=== PATIENT | male | born 1990 | race Caucasian/White ===

== ENCOUNTER 2016-09-19 21:09 | Emergency (ER) | payer MEDICAID ==
[2016-09-19 21:32] VITALS: BP 132/75
[2016-09-20] MEDS ORDERED: NORMAL SALINE 1000 ML 1,000 ML IV ONE (01:32)
[2016-09-20] MEDS ORDERED: ONDANSETRON HCL INJ/PF 4 MG/2 ML SDV IV ONE (01:33)
[2016-09-20] MEDS ORDERED: ONDANSETRON ODT 4 MG TAB (6 TAB/DSPK) PO PRN (02:24)
--- NOTE | 2016-09-20 02:26 | ER Document Report ---
ED General - General Chief Complaint: Vomiting Stated Complaint: VOMITING,SICKNESS, STOMACH PAIN Time Seen by Provider: 09/20/16 01:32 Notes: Patient is a 25-year-old male without past medical history, no prior abdominal surgeries who presents with 16 hours of nausea, vomiting and diarrhea. States that the symptoms started approximately several hours after he ate chicken wings. Notes that he has had difficulty tolerating food intake since the onset of his vomiting but has been able to keep fluids down. He denies any focal abdominal pain. States that his symptoms have now spontaneously resolved at the time of my assessment. Nothing was noted to improve or worsen his symptoms. He denies any history of similar symptoms in the past. He did not see his primary care doctor regarding today's concerns. Denies any associated fever, chest pain, cough or dysuria TRAVEL OUTSIDE OF THE [place] IN LAST 30 DAYS: No - Related Data Allergies/Adverse Reactions: No Known Allergies Allergy (Unverified 09/19/16 21:29) Past Medical History - General Information source: Patient - Social History Smoking Status: Never Smoker Frequency of alcohol use: Occasional Drug Abuse: None Family History: Reviewed & Not Pertinent Patient has suicidal ideation: No Patient has homicidal ideation: No Renal/ Medical History: Denies: Hx Peritoneal Dialysis Review of Systems - Review of Systems Notes: Constitutional: Negative for fever. HENT: Negative for sore throat. Eyes: Negative for visual changes. Cardiovascular: Negative for chest pain. Respiratory: Negative for shortness of breath. Gastrointestinal: Negative for abdominal pain, positive for vomiting and diarrhea Genitourinary: Negative for dysuria. Musculoskeletal: Negative for back pain. Skin: Negative for rash. Neurological: Negative for headaches, weakness or numbness. 10 point ROS negative except as marked above and in HPI. Physical Exam - Vital signs Vitals: Temp Pulse Resp BP Pulse Ox 98.1 F 100 18 132/75 H 97 09/19/16 21:29 09/19/16 21:29 09/19/16 21:29 09/19/16 21:29 09/19/16 21:29 Interpretation: Normal Notes: PHYSICAL EXAMINATION: GENERAL: Well-appearing, well-nourished and in no acute distress. HEAD: Atraumatic, normocephalic. EYES: Pupils equal round and reactive to light, extraocular movements intact, sclera anicteric, conjunctiva are normal. ENT: nares patent, oropharynx clear without exudates. Moist mucous membranes. NECK: Normal range of motion, supple without lymphadenopathy LUNGS: Breath sounds clear to auscultation bilaterally and equal. No wheezes rales or rhonchi. HEART: Regular rate and rhythm without murmurs ABDOMEN: Soft, nontender, normoactive bowel sounds. No guarding, no rebound. No masses appreciated. EXTREMITIES: Normal range of motion, no pitting or edema. No cyanosis. NEUROLOGICAL: No focal neurological deficits. Moves all extremities spontaneously and on command. PSYCH: Normal mood, normal affect. SKIN: Warm, Dry, normal turgor, no rashes or lesions noted. Course - Re-evaluation Re-evalutation: 09/20/16 02:25 Presentation of an overall well-appearing patient in no acute distress with complaints of nausea, vomiting, diarrhea. This is consistent with likely food borne gastroenteritis as patient states his symptoms started shortly after eating wings that had by several weeks. Patient has no abdominal tenderness on exam and specifically no tenderness in the RLQ, LLQ, RUQ. Overall well hydrated on exam. Able to tolerate oral intake here in the emergency department. Low clinical suspicion for any acute life-threatening etiology based on exam and history including acute cholecystitis, SBO, appendicitis, nephrolithiasis, or pylonephritis. Given clinical history, patient's ability to tolerate hydration without difficulty, reassuring exam and vitals no indication for labs or imaging at this time. At this time will discharge with return precautions and follow-up recommendations. Verbal discharge instructions given a the bedside and opportunity for questions given. Medication warnings reviewed. Patient is in agreement with this plan and has verbalized understanding of return precautions and the need for primary care follow-up in the next 24-72 hours. - Vital Signs Vital signs: Temp Pulse Resp BP Pulse Ox 98.1 F 100 18 132/75 H 97 09/19/16 21:29 09/19/16 21:29 09/19/16 21:29 09/19/16 21:29 09/19/16 21:29 Discharge - Discharge Clinical Impression: Vomiting and diarrhea Condition: Good Disposition: HOME, SELF-CARE Additional Instructions: Your symptoms are likely due to a foodborne contamination and should resolve in the next several days. You can take [id number] loperamide also known as Imodium as needed for diarrhea per box instructions. Continue to stay hydrated with plenty of solution such as Gatorade or Pedialyte. You are being prescribed Zofran to take as needed for nausea and vomiting. Please return if you develop severe abdominal pain, pass out, become unable to tolerate any oral fluids for 12 more hours, or any other symptoms that are concerning to you. Forms: Return to Work
== END 2016-09-20 04:16 | disposition home or self-care (01) ==
LOC: ER 21:09
DX: R11.2 Nausea with vomiting, unspecified (principal); R19.7 Diarrhea, unspecified; R10.9 Unspecified abdominal pain
CPT/HCPCS: 99283

== ENCOUNTER 2016-11-15 20:31 | Emergency (ER) | payer MEDICAID ==
[2016-11-15] MEDS ORDERED: PREDNISONE 20 MG TABLET PO ONE (21:56)
[2016-11-15] MEDS ORDERED: CEPHALEXIN 500 MG CAPSULE PO ONE (21:56)
--- NOTE | 2016-11-15 21:59 | ER Document Report ---
ED Extremity Problem, Lower - General Chief Complaint: Foot Pain Stated Complaint: LEFT FOOT SWOLLEN Time Seen by Provider: 11/15/16 21:35 Notes: Patient is a 25-year-old male comes emergency department for chief complaint of itchy area on the left side of his foot that became red and tender over the past few days. He admits he has scratched the area. There has been some clear drainage and a small amount of discolored drainage from the area. He denies any fever or chills. He denies diabetes. He has a history of psoriasis. TRAVEL OUTSIDE OF THE [place] IN LAST 30 DAYS: No - Related Data Allergies/Adverse Reactions: No Known Allergies Allergy (Unverified 11/15/16 20:48) Past Medical History - General Information source: Patient - Social History Smoking Status: Never Smoker Frequency of alcohol use: None Drug Abuse: None Lives with: Family Family History: Reviewed & Not Pertinent Renal/ Medical History: Denies: Hx Peritoneal Dialysis Surgical Hx: Negative - Immunizations Immunizations up to date: Yes Hx Diphtheria, Pertussis, Tetanus Vaccination: Yes Review of Systems - Review of Systems Constitutional: No symptoms reported EENT: No symptoms reported Cardiovascular: No symptoms reported Respiratory: No symptoms reported Gastrointestinal: No symptoms reported Genitourinary: No symptoms reported Male Genitourinary: No symptoms reported Musculoskeletal: No symptoms reported Skin: See HPI Hematologic/Lymphatic: No symptoms reported Neurological/Psychological: No symptoms reported Physical Exam - Vital signs Vitals: Temp Pulse Resp BP Pulse Ox 97.5 F 89 16 140/78 H 98 11/15/16 22:29 11/15/16 22:29 11/15/16 22:29 11/15/16 22:29 11/15/16 22:29 Interpretation: Normal - General General appearance: Appears well, Alert - HEENT Head: Normocephalic, Atraumatic Eyes: Normal Pupils: PERRL - Respiratory Respiratory status: No respiratory distress Chest status: Nontender Breath sounds: Normal Chest palpation: Normal - Cardiovascular Rhythm: Regular Heart sounds: Normal auscultation Murmur: No - Abdominal Inspection: Normal Distension: No distension Bowel sounds: Normal Tenderness: Nontender Organomegaly: No organomegaly - Back Back: Normal, Nontender - Extremities General upper extremity: Normal inspection, Nontender, Normal color, Normal ROM , Normal temperature General lower extremity: Normal inspection, Nontender, Normal color, Normal ROM , Normal temperature, Normal weight bearing. No: Rita's sign - Neurological Neuro grossly intact: Yes Cognition: Normal Orientation: AAOx4 [place] Coma Scale Eye Opening: Spontaneous [place] Coma Scale Verbal: Oriented [place] Coma Scale Motor: Obeys Commands [place] Coma Scale Total: 15 Speech: Normal Motor strength normal: LUE, RUE, LLE, RLE Sensory: Normal - Psychological Associated symptoms: Normal affect, Normal mood - Skin Skin Temperature: Warm Skin Moisture: Dry Skin Color: Normal Location of irregularity: Other - Left lateral dorsal foot with excoriations and small amount of crusting around scratched areas with mild surrounding erythema. No induration, no discharge. No other abnormality noted. Patient also has plaques on his elbows and a faint macular rash over his abdomen Course - Re-evaluation Re-evalutation: Patient with psoriasis, describes eczema-like rash on his foot which he scratched and now appears to possibly have mild cellulitis. Patient also has a macular rash over his abdomen in addition to the plaques on his arms. Appears to be mixed rash. No evidence of severe infection, possible early cellulitis of the foot. No evidence of fungal infection either. No evidence of necrotizing fasciitis at this time. I discussed with patient, he requests prednisone after discussion, he states that he will not be able to follow-up with dermatology for a couple of months. Patient given Keflex, prednisone, return precautions. Patient states satisfaction and agreement. - Vital Signs Vital signs: Temp Pulse Resp BP Pulse Ox 97.5 F 89 16 140/78 H 98 11/15/16 22:29 11/15/16 22:29 11/15/16 22:29 11/15/16 22:29 11/15/16 22:29 Discharge - Discharge Clinical Impression: Skin rash, Wound of skin Condition: Stable Disposition: HOME, SELF-CARE Additional Instructions: The area in question is consistent with possible eczema and secondary bacterial infection. Take both medications as prescribed, elevate your foot. Follow-up with dermatology referral. Return to emergency department for any worsening symptoms including spreading redness, fever, or any other concerning symptoms. Prescriptions: Cephalexin Monohydrate [Keflex 500 mg Capsule] 500 mg PO QID #28 capsule Prednisone [Deltasone 10 mg Tablet] 10 mg PO ASDIR PRN #21 tablet PRN Reason: Forms: Return to Work Referrals: DARRIAN MCCULLOUGH MD [Primary Care Provider] - Follow up as needed
[2016-11-15 22:35] VITALS: BP 140/78
== END 2016-11-15 22:16 | disposition home or self-care (01) ==
LOC: ER 20:31
DX: R21 Rash and other nonspecific skin eruption (principal); M79.672 Pain in left foot; M79.89 Other specified soft tissue disorders
CPT/HCPCS: 99283; J7512

== ENCOUNTER 2016-11-18 16:01 | Emergency (ER) | payer MEDICAID ==
[2016-11-18] MEDS ORDERED: IBUPROFEN 800 MG TABLET PO ONE (16:38)
[2016-11-18] MEDS ORDERED: LIDOCAINE 5% (700 MG) TRANSDERMAL ADH..PATCH TP ONE (16:39)
[2016-11-18] MEDS ORDERED: SULFAMETHOXAZOLE/TRIMETHOPRIM 800-160 MG TABLET PO ONE (16:40)
--- NOTE | 2016-11-18 16:42 | ER Document Report ---
HPI - HPI Patient complains to provider of: neck pain Onset: Yesterday Onset/Duration: Sudden Quality of pain: Sharp Pain Level: 5 Context: States that he was cutting his hair while at home leaning over his bathtub. Patient states that after he had wash his hair and sat up he had a sharp neck and upper back pain that has persisted since then. Patient denies any specific injury. Patient denies any previous history of neck pain. Patient also complains of continued left lateral foot pain involving for an open wound to his left foot. Patient states that he will get a blistering rash periodically and he will pop the skin lesions and this developed into a worse infection on his foot. Patient states that he has been taking the steroid medication and the Keflex that he was prescribed 3 days ago. Associated Symptoms: Other - Neck pain, upper back pain, foot rash with open skin wound. denies: Fever, Headache Exacerbated by: Movement Relieved by: Denies Similar symptoms previously: No Recently seen / treated by doctor: Yes - ROS ROS below otherwise negative: Yes Systems Reviewed and Negative: Yes All other systems reviewed and negative - CONSTITUTIONAL Constitutional: DENIES: Fever - NEURO Neurology: DENIES: Headache, Weakness - GASTROINTESTINAL Gastrointestinal: DENIES: Nausea - MUSCULOSKELETAL Musculoskeletal: REPORTS: Extremity pain, Back Pain, Neck Pain - DERM Skin Color: Normal Skin Problems: Rash Notes: skin wound Past Medical History - General Information source: Patient - Social History Smoking Status: Current Every Day Smoker Frequency of alcohol use: Occasional Drug Abuse: None Occupation: prepared foods production team member Lives with: Family Family History: Reviewed & Not Pertinent Patient has suicidal ideation: No - Past Medical History Cardiac Medical History: Reports: Hx Heart Murmur Renal/ Medical History: Denies: Hx Peritoneal Dialysis Skin Medical History: Reports Hx Psoriasis Past Surgical History: Reports: Hx Myringotomy - Immunizations Immunizations up to date: Yes Hx Diphtheria, Pertussis, Tetanus Vaccination: Yes Vertical Provider Document - CONSTITUTIONAL Agree With Documented VS: Yes Exam Limitations: No Limitations General Appearance: WD/WN, No Apparent Distress - INFECTION CONTROL TRAVEL OUTSIDE OF THE [place] IN LAST 30 DAYS: No - HEENT HEENT: Atraumatic, Normal ENT Exam, Normocephalic - NECK Neck: Normal Inspection, Supple. negative: Lymphadenopathy-Left, Lymphadenopathy-Right - RESPIRATORY Respiratory: Breath Sounds Normal, No Respiratory Distress - CARDIOVASCULAR Cardiovascular: Regular Rate, Regular Rhythm, No Murmur Pulses: Normal: Radial, Dorsalis pedis - BACK Back: Abnormal Inspection - Patient with lower cervical tenderness and upper thoracic midline tenderness, no step-off or deformity, with mild upper thoracic paraspinal tenderness. negative: CVA Tenderness-Right, CVA Tenderness-Left - MUSCULOSKELETAL/EXTREMETIES Musculoskeletal/Extremeties: ALVA MINAYA - NEURO Level of Consciousness: Awake, Alert, Appropriate Motor/Sensory: No Motor Deficit, No Sensory Deficit. negative: Weak Motor Strength RUE, Weak Motor Strength LUE, Weak Motor Strength RLE, Weak Motor Strength LLE - DERM Integumentary: Warm, Dry, Rash - Scaling demarcated rash along lateral aspect of left foot just inferior of lateral malleolar area. Patient with open skin wound that is tender to touch. No fluctuance, no concern for abscess at this time. Course - Diagnostic Test Radiology reviewed: Reports reviewed Discharge - Discharge Clinical Impression: Wound of skin Cervical strain, acute Qualifiers: Encounter type: initial encounter Qualified Code(s): S16.1XXA - Strain of muscle, fascia and tendon at neck level, initial encounter Upper back strain Qualifiers: Encounter type: initial encounter Qualified Code(s): S29.012A - Strain of muscle and tendon of back wall of thorax, initial encounter Condition: Stable Disposition: HOME, SELF-CARE Instructions: Upper Back Strain ([facility]), Neck Injury (Cervical Strain) ([facility]), Dressing Instructions for Open Wounds ([facility]), Use of Crutches ([facility]) Additional Instructions: Return immediately for any new or worsening symptoms Followup with your primary care provider, call tomorrow to make a followup appointment Weightbearing as tolerated to foot Keep wound covered as it continues to heal Use Topical zhew-hhy-pxsvjru lidocaine patches as directed Prescriptions: Cyclobenzaprine HCl [Flexeril 10 Mg Tablet] 10 mg PO TID #15 tablet Naproxen [Naprosyn 250 Nmg Tablet] 1 tab PO BID #14 tablet Sulfamethoxazole/Trimethoprim [Bactrim Ds Tablet] 1 each PO BID #20 tablet Forms: Return to Work Referrals: [facility] [Provider Group] - Follow up as needed [facility] [Provider Group] - Follow up as needed
--- NOTE | 2016-11-18 17:13 | RADIOLOGY REPORT (SQ) ---
EXAM DESCRIPTION: T SPINE AP/LAT COMPLETED DATE/TIME: 11/18/2016 4:55 pm REASON FOR STUDY: upper thoracic back pain COMPARISON: None. NUMBER OF VIEWS: Two views. TECHNIQUE: AP and lateral radiographic images acquired of the thoracic spine. LIMITATIONS: None. FINDINGS: MINERALIZATION: Normal. ALIGNMENT: Normal. No scoliosis. VERTEBRAE: No fracture or bone lesion. Maintained height, normal segmentation. DISCS: No significant loss of height or significant narrowing. No large osteophytes. HARDWARE: None in the spine. MEDIASTINUM AND SOFT TISSUES: Normal heart size and aortic contour. No soft tissue abnormality. VISUALIZED LUNG MORALES: Clear. OTHER: No other significant finding. IMPRESSION: NO SIGNIFICANT RADIOGRAPHIC FINDING IN THE THORACIC SPINE. TECHNICAL DOCUMENTATION: JOB ID: [id number] [employer]- All Rights Reserved
--- NOTE | 2016-11-18 17:15 | RADIOLOGY REPORT (SQ) ---
EXAM DESCRIPTION: CERV SP 4 OR 5 VIEWS COMPLETED DATE/TIME: 11/18/2016 4:55 pm REASON FOR STUDY: lower cervical, upper thoracic back pain COMPARISON: None. NUMBER OF VIEWS: Five views. TECHNIQUE: AP, lateral, obliques and odontoid radiographic images acquired of the cervical spine. LIMITATIONS: None. FINDINGS: MINERALIZATION: Normal. ALIGNMENT: Anatomic. VERTEBRAE: Vertebral bodies of normal height. DISCS: No significant osteophytes or sclerosis. Disc height maintained. FORAMINA: No osteophytes or foraminal narrowing. LATERAL AND POSTERIOR ELEMENTS: Facets, lateral masses and spinous processes without significant find ings. HARDWARE: None in the spine. SOFT TISSUES: No masses or calcifications. Lung apices clear. OTHER: No other significant finding. IMPRESSION: NO SIGNIFICANT RADIOGRAPHIC FINDING IN THE CERVICAL SPINE. TECHNICAL DOCUMENTATION: JOB ID: [id number] [employer]- All Rights Reserved
[2016-11-18 17:36] VITALS: BP 131/77
== END 2016-11-18 18:07 | disposition home or self-care (01) ==
LOC: ER 16:01
DX: S16.1XXA Strain of muscle, fascia and tendon at neck level, initial encounter (principal); S29.012A Strain of muscle and tendon of back wall of thorax, initial encounter; F17.200 Nicotine dependence, unspecified, uncomplicated; X58.XXXA Exposure to other specified factors, initial encounter; Y93.E8 Activity, other personal hygiene; Y92.009 Unspecified place in unspecified non-institutional (private) residence as the place of occurrence of the external cause
CPT/HCPCS: 99284; 72050; 72070; J3490 ×3

== ENCOUNTER 2016-12-20 20:45 | Emergency (ER) | payer MEDICAID ==
[2016-12-20] MEDS ORDERED: ONDANSETRON HCL INJ/PF 4 MG/2 ML SDV IV ONE (21:07)
[2016-12-20] MEDS ORDERED: NORMAL SALINE 1000 ML 1,000 ML IV ONE (21:07)
--- NOTE | 2016-12-20 21:16 | ER Document Report ---
ED GI/ - General Chief Complaint: Nausea/Vomiting Stated Complaint: VOMITING Time Seen by Provider: 12/20/16 21:07 Mode of Arrival: Ambulatory Information source: Patient Notes: Patient is a 26-year-old male who presents to the ER today for nausea, vomiting , diarrhea since 11 AM today when he ate at a restaurant and states that food just tasted bad. He admits to at least 6 episodes of vomiting and constant nausea. He admits to 3 episodes of diarrhea. He admits to diffuse abdominal pain but only relieved when vomiting. He states that abdominal pain is "mild." He denies any fevers or chills. TRAVEL OUTSIDE OF THE [place] IN LAST 30 DAYS: No - Related Data Allergies/Adverse Reactions: strawberry Allergy (Verified 12/20/16 21:54) Past Medical History - General Information source: Patient - Social History Smoking Status: Unknown if Ever Smoked Family History: Reviewed & Not Pertinent Patient has suicidal ideation: No Patient has homicidal ideation: No - Past Medical History Cardiac Medical History: Reports: Hx Heart Murmur Renal/ Medical History: Denies: Hx Peritoneal Dialysis Skin Medical History: Reports Hx Psoriasis Past Surgical History: Reports: Hx Myringotomy - Immunizations Immunizations up to date: Yes Hx Diphtheria, Pertussis, Tetanus Vaccination: Yes Review of Systems - Review of Systems Constitutional: No symptoms reported EENT: No symptoms reported Cardiovascular: No symptoms reported Respiratory: No symptoms reported Gastrointestinal: See HPI Genitourinary: No symptoms reported Male Genitourinary: No symptoms reported Musculoskeletal: No symptoms reported Skin: No symptoms reported Hematologic/Lymphatic: No symptoms reported Neurological/Psychological: No symptoms reported Physical Exam - Vital signs Vitals: Temp Pulse Resp BP Pulse Ox 98.5 F 88 18 135/84 H 98 12/20/16 20:48 12/20/16 20:48 12/20/16 20:48 12/20/16 20:48 12/20/16 20:48 - Notes Notes: PHYSICAL EXAMINATION: GENERAL: Mildly ill-appearing, in no acute distress. HEAD: Atraumatic, normocephalic. EYES: Pupils equal round and reactive to light, extraocular movements intact, sclera anicteric, conjunctiva are normal. NECK: Normal range of motion, supple without lymphadenopathy LUNGS: CTAB and equal. No wheezes rales or rhonchi. HEART: Regular rate and rhythm without murmurs ABDOMEN: Soft, no tenderness. No guarding, no rebound BACK: no vertebral tenderness, normal ROM GI/: no CVA tenderness EXTREMITIES: Normal range of motion, no pitting edema. No cyanosis. NEUROLOGICAL: Cranial nerves grossly intact. Normal sensory/motor exams. PSYCH: Normal mood, normal affect. SKIN: Warm, Dry, normal turgor, no rashes or lesions noted Course - Re-evaluation Re-evalutation: 12/20/16 22:07 Patient feels better after IV fluids, Zofran. Patient has not vomited here and would like to go home. His lab work is unremarkable today. - Vital Signs Vital signs: Temp Pulse Resp BP Pulse Ox 98.5 F 88 18 135/84 H 98 12/20/16 20:48 12/20/16 20:48 12/20/16 20:48 12/20/16 20:48 12/20/16 20:48 - Laboratory Result Diagrams: 12/20/16 21:34 12/20/16 21:34 Laboratory results interpreted by me: 12/20/16 12/20/16 21:34 21:34 Plt Count 116 L Glucose 125 H Discharge - Discharge Clinical Impression: Nausea vomiting and diarrhea Condition: Stable Disposition: HOME, SELF-CARE Instructions: Intravenous (IV) Fluids ([facility]), Diarrhea, Nonspecific ([facility]), Vomiting ([facility]) Additional Instructions: Return immediately for any new or worsening symptoms. Follow up with primary care provider, call tomorrow to make followup appointment. Prescriptions: Ondansetron [Zofran Odt 4 mg Tablet] 1 - 2 tab PO Q4H PRN #15 tab.rapdis PRN Reason: For Nausea/Vomiting Forms: Return to Work
[2016-12-20 21:47] LABS: ABSOLUTE BASOPHILS # (AUTO) 0.1 10^3/uL (0.0-0.2); ABSOLUTE EOSINOPHILS # (AUTO) 0.2 10^3/uL (0.0-0.6); ABSOLUTE LYMPHOCYTES (AUTO) 2.2 10^3/uL (0.5-4.7); ABSOLUTE MONOCYTES (AUTO) 0.5 10^3/uL (0.1-1.4); ABSOLUTE NEUT (AUTO) 4.6 10^3/uL (1.7-8.2); BASOPHILS % (AUTO) 0.7 % (0-2); EOSINOPHILS % (AUTO) 2.2 % (0-6); HEMATOCRIT 49.2 % (37.9-51.0); HGB HCT DIFFERENCE 1.8; LYMPHOCYTES % (AUTO) 29.2 % (13-45); MEAN CORPUSCULAR HEMOGLOBIN 32.2 pg (27.0-33.4); MEAN CORPUSCULAR HGB CONC 34.5 g/dL (32.0-36.0); MEAN CORPUSCULAR VOLUME 93 fl (80-97); MONOCYTES % (AUTO) 6.2 % (3-13); RED BLOOD COUNT 5.27 10^6/uL (4.35-5.55); SEGMENTED NEUTROPHILS % (AUTO) 61.7 % (42-78); WHITE BLOOD COUNT 7.5 10^3/uL (4.0-10.5)
[2016-12-20 21:56] LABS: ALANINE AMINOTRANSFERASE 29 U/L (21-72); ALBUMIN 4.7 g/dL (3.5-5.0); ALKALINE PHOSPHATASE 64 U/L (38-126); ANION GAP 14 (5-19); ASPARTATE AMINO TRANSFERASE 24 U/L (17-59); BILIRUBIN,DIRECT 0.3 mg/dL (0.0-0.4); BILIRUBIN,TOTAL 0.5 mg/dL (0.2-1.3); BLOOD UREA NITROGEN 15 mg/dL (7-20); CALCIUM 9.7 mg/dL (8.4-10.2); CARBON DIOXIDE 26 mmol/L (22-30); CHLORIDE 101 mmol/L (98-107); CREATININE RESULT 0.86 mg/dL (0.52-1.25); GLUCOSE 125 mg/dL (75-110); LIPASE 98.3 U/L (23-300); POTASSIUM 3.9 mmol/L (3.6-5.0); SODIUM 140.5 mmol/L (137-145); TOTAL PROTEIN 7.4 g/dL (6.3-8.2)
[2016-12-20] MEDS ORDERED: ONDANSETRON ODT 4 MG TAB (6 TAB/DSPK) PO PRN (22:11)
[2016-12-20 22:12] LABS: APPEARANCE,URINE CLEAR; BILIRUBIN,URINE NEGATIVE (NEGATIVE); GLUCOSE, URINE NEGATIVE (NEGATIVE); KETONES,URINE NEGATIVE (NEGATIVE); LEUKOCYTE ESTERASE,URINE NEGATIVE (NEGATIVE); NITRITE,URINE NEGATIVE (NEGATIVE); PROTEIN,URINE NEGATIVE (NEGATIVE); URINE SPECIFIC GRAVITY 1.029
[2016-12-20 22:31] VITALS: BP 132/80
== END 2016-12-20 22:31 | disposition home or self-care (01) ==
LOC: ER 20:45
DX: R11.2 Nausea with vomiting, unspecified (principal); R19.7 Diarrhea, unspecified; R10.9 Unspecified abdominal pain
CPT/HCPCS: 99284; 96361; 96374; 36415; 83690; 85025; 80053; 81001; J2405; J7030

== ENCOUNTER 2017-01-11 21:48 | Emergency (ER) | payer SELFPAY ==
--- NOTE | 2017-01-11 23:25 | ER Document Report ---
ED General - General Chief Complaint: Chest Wall Pain Stated Complaint: CHEST PAIN Time Seen by Provider: 01/11/17 23:18 Notes: Patient says that he was changing a diaper on 1 of his children at 11 AM this morning when he started experiencing pain in the front of his chest. After a while it seemed to move into the left chest and down the left arm. He has had episodes like this off and on over the past year, but never had them checked out. In the past, he is had milk and trying to relax and that has helped the pain, but it did not seem to help today. In addition, he took some ibuprofen and some Tylenol, each with no improvement. He describes initial pain as being sharp, but now it is more dull and goes and comes. It worsened when he moves. Patient works in fast food. Does not do extremely heavy lifting or any activity that would injure or strain his left chest or left shoulder. He is right-hand dominant. He has had some nausea, but not vomiting. Diarrhea 3 times a day. Denies any abdominal pains. Has had no significant cough but has had some congestion and some runny nose for about 3 days. Has not felt he had a fever. Denies any surgeries. On no regular prescription medications. Told once that he had a heart murmur. Patient smokes cigarettes. Does not drink much alcohol. Questioned patient as to whether his symptoms might be related to stress and if he is been experiencing any unusual amount of stress recently. He quickly responded the there are 5 kids at home to take care of. He and his share the responsibilities, but it can be difficult at times. TRAVEL OUTSIDE OF THE [place] IN LAST 30 DAYS: No - Related Data Allergies/Adverse Reactions: strawberry Allergy (Verified 01/11/17 22:24) Past Medical History - Social History Smoking Status: Current Every Day Smoker Frequency of alcohol use: None Drug Abuse: Marijuana Family History: Reviewed & Not Pertinent Patient has suicidal ideation: No Patient has homicidal ideation: No - Past Medical History Cardiac Medical History: Reports: Hx Heart Murmur Skin Medical History: Reports Hx Psoriasis Psychiatric Medical History: Reports: Hx Depression Surgical Hx: Negative Past Surgical History: Reports: Hx Myringotomy - Immunizations Immunizations up to date: Yes Hx Diphtheria, Pertussis, Tetanus Vaccination: Yes Review of Systems - Review of Systems Notes: REVIEW OF SYSTEMS: CONSTITUTIONAL : Denies fever. EENT: Denies eye, ear, nose or mouth or throat pain or other symptoms. CARDIOVASCULAR: See HPI.. RESPIRATORY: Denies cough, chest congestion, or shortness of breath. GASTROINTESTINAL: Denies abdominal pain or nausea, vomiting, but about 3 episodes of diarrhea. GENITOURINARY: Denies difficulty or painful urinating, urinary frequency, blood in urine. MUSCULOSKELETAL: Denies back or neck pain. Denies joint pain or swelling. See HPI. SKIN: Denies rash or skin lesions. NEUROLOGICAL: Denies LOC or altered mental status. Denies headache. Denies sensory loss or motor deficits. ALL OTHER SYSTEMS REVIEWED AND NEGATIVE. Physical Exam - Vital signs Vitals: Temp Pulse Resp BP Pulse Ox 98.6 F 74 20 149/89 H 96 01/11/17 22:22 01/11/17 22:22 01/11/17 22:22 01/11/17 22:22 01/11/17 22:22 Interpretation: Normal - Notes Notes: PHYSICAL EXAMINATION: GENERAL: Well-appearing, in no acute distress. Vital signs are all normal. HEAD: Atraumatic, normocephalic. EYES: Pupils equal round and reactive to light, extraocular movements intact. ENT: oropharynx clear without exudates. Moist mucous membranes. NECK: Normal range of motion, supple. LUNGS: Breath sounds clear and equal bilaterally. No significant chest wall tenderness to press the anterior left chest. HEART: Regular rate and rhythm without murmurs. ABDOMEN: Soft, nontender. No guarding or rebound. BACK: No tenderness throughout entire back. EXTREMITIES: Normal range of motion without pain. Patient says it is painful for me to passively move his left shoulder in various positions. NEUROLOGICAL: Normal speech, normal gait. Normal sensory, motor, and reflex exams. Awake, alert, and oriented x3. Cranial nerves normal. PSYCH: Normal mood, normal affect. SKIN: Warm, dry, no rashes. Course - Vital Signs Vital signs: Temp Pulse Resp BP Pulse Ox 98.6 F 74 20 117/83 96 01/11/17 22:24 01/11/17 22:24 01/12/17 00:03 01/12/17 00:03 01/12/17 00:03 - Laboratory Result Diagrams: 01/11/17 23:59 01/11/17 23:59 Laboratory results interpreted by me: 01/11/17 23:59 Plt Count 101 L - Diagnostic Test Radiology results interpreted by me: 01/12/17 02:00 Chest x-ray is normal. - EKG Interpretation by Me EKG shows normal: Sinus rhythm Rate: Normal Rhythm: NSR Additional EKG results interpreted by me: 01/12/17 02:[address] changes consistent with early repolarization. Discharge - Discharge Clinical Impression: Left-sided chest wall pain, Non-cardiac chest pain Condition: Stable Disposition: HOME, SELF-CARE Additional Instructions: CHEST PAIN OF UNCLEAR CAUSE: The exact cause of your chest pain isn't clear. Fortunately, there is no evidence of a dangerous medical condition. Further testing may be required to find the source of the pain. Most often, we find that this pain is coming from the chest wall -- the muscles or rib joints in the chest. But chest pain can come from the lung and lung lining, the esophagus, the heart valves or heart lining, and even the stomach or gallbladder. Rest. Eat lightly until the pain is gone. We may prescribe medicine for pain and inflammation. You should call the physician immediately if the pain radiates to the shoulder, jaw or arms; if you start to run a fever or develop a cough; or if you develop shortness of breath, or other new or alarming symptoms. NORMAL EXAM AND WORKUP: At this time, your examination and workup show no significant abnormality. No significant abnormal physical findings were noted. All laboratory, EKG, and imaging (x-ray, CT scans, ultrasound) studies that were ordered show no significant abnormality. Although your examination and all studies that were ordered showed no significant abnormal finding, there are no examinations and no studies that are 100% accurate. There is always the possibility that some abnormality could exist and not be detected with physical examination or within the limits and capabilities of laboratory and other studies. You should return or follow up as you were instructed on your visit today for further evaluation if your symptoms do not resolve. CHEST WALL PAIN: Your chest pain may be coming from the chest wall. This is often caused by straining the muscles or joints in the chest during physical activity, direct trauma, coughing, or vigorous vomiting. Persons with arthritis are especially prone to this type of pain, due to inflammation of the cartilage joints near the breast bone. Occasionally, no cause can be found. Rest from strenuous physical activity. This kind of chest pain is usually made worse by movement of the chest. Depending on the symptoms, we may prescribe medicine for pain, muscle relaxation, and antiinflammatory effects. If the pain is new, and seems to be due to muscle strain, cold packs can help. Otherwise, apply gentle warmth to the painful area for 15 minutes every hour or two. You should call contact the doctor immediately if things change. Further evaluation is needed if you develop a fever or cough, if the nature of the pain changes, or if you become short of breath. Ibuprofen Ibuprofen is an excellent, safe drug for pain control. In addition, it has potent antiinflammatory effects which are beneficial, especially in the treatment of injuries, arthritis, or tendonitis. It's best to take ibuprofen with food. Persons with ulcer disease or allergy to aspirin should notify their physician of this before taking ibuprofen. Take the medication exactly as prescribed. Don't take additional doses unless instructed to do so by your doctor. If you develop wheezing, shortness of breath, hives, faintness, stomach pain, vomiting, or dark black stools, return for re-evaluation at once. Muscle Relaxers Muscle relaxing medications are usually prescribed for acute muscle spasm or injury to the neck and back. They are often combined with antiinflammatory pain medication for increased relief. You may stop the muscle relaxer when the pain and stiffness have improved. Start the medication again if spasms recur. Muscle relaxers may cause drowsiness, especially with the first dose. Do not operate machinery or drive while under the effects of the medication. Most muscle relaxers last up to 24 hours. Do not combine the medication with alcohol. FOLLOW-UP CARE: If you have been referred to a physician for follow-up care, call the physician s office for an appointment as you were instructed or within the next two days. If you experience worsening or a significant change in your symptoms, notify the physician immediately or return to the Emergency Department at any time for re-evaluation. Prescriptions: Methocarbamol [Robaxin 500 mg Tablet] 1,000 mg PO QID #50 tablet Forms: Return to Work
[2017-01-12 00:10] LABS: ABSOLUTE BASOPHILS # (AUTO) 0.1 10^3/uL (0.0-0.2); ABSOLUTE EOSINOPHILS # (AUTO) 0.1 10^3/uL (0.0-0.6); ABSOLUTE LYMPHOCYTES (AUTO) 2.1 10^3/uL (0.5-4.7); ABSOLUTE MONOCYTES (AUTO) 0.6 10^3/uL (0.1-1.4); ABSOLUTE NEUT (AUTO) 3.9 10^3/uL (1.7-8.2); BASOPHILS % (AUTO) 0.8 % (0-2); HEMATOCRIT 45.7 % (37.9-51.0); HEMOGLOBIN 16.3 g/dL (13.5-17.0); HGB HCT DIFFERENCE 3.2; MEAN CORPUSCULAR HEMOGLOBIN 32.3 pg (27.0-33.4); MEAN CORPUSCULAR HGB CONC 35.6 g/dL (32.0-36.0); MEAN CORPUSCULAR VOLUME 91 fl (80-97); MONOCYTES % (AUTO) 8.3 % (3-13); RED BLOOD COUNT 5.05 10^6/uL (4.35-5.55); RED CELL DISTRIBUTION WIDTH 13.7 % (11.5-14.0); SEGMENTED NEUTROPHILS % (AUTO) 57.9 % (42-78); WHITE BLOOD COUNT 6.8 10^3/uL (4.0-10.5)
[2017-01-12 00:39] LABS: ALANINE AMINOTRANSFERASE 36 U/L (21-72); ALBUMIN 4.2 g/dL (3.5-5.0); ALKALINE PHOSPHATASE 71 U/L (38-126); ANION GAP 9 (5-19); ASPARTATE AMINO TRANSFERASE 26 U/L (17-59); BILIRUBIN,DIRECT 0.4 mg/dL (0.0-0.4); BILIRUBIN,TOTAL 0.4 mg/dL (0.2-1.3); BLOOD UREA NITROGEN 12 mg/dL (7-20); CALCIUM 9.2 mg/dL (8.4-10.2); CARBON DIOXIDE 26 mmol/L (22-30); CHLORIDE 105 mmol/L (98-107); CREATININE RESULT 0.69 mg/dL (0.52-1.25); GLUCOSE 81 mg/dL (75-110); POTASSIUM 3.8 mmol/L (3.6-5.0); SODIUM 140.3 mmol/L (137-145); TOTAL PROTEIN 6.8 g/dL (6.3-8.2)
--- NOTE | 2017-01-12 00:39 | EKG REPORT ---
SEVERITY:- NORMAL ECG - SINUS RHYTHM ST ELEV, PROBABLE NORMAL EARLY REPOL PATTERN : Confirmed by: Chidi Diaz 12-Jan-2017 00:38:23
[2017-01-12 00:47] LABS: CREATINE KINASE MB 0.68 ng/mL (<4.55); ERYTHROCYTE SEDIMENTATION RATE 5 mm/hr (0-15)
[2017-01-12 00:48] LABS: TROPONIN I < 0.012 ng/mL
--- NOTE | 2017-01-12 01:34 | RADIOLOGY REPORT (SQ) ---
EXAM DESCRIPTION: CHEST PA/LAT COMPLETED DATE/TIME: 01/12/2017 1:13 am REASON FOR STUDY: Left chest pain COMPARISON: Thoracic spine x-ray 11/18/2016. EXAM PARAMETERS: NUMBER OF VIEWS: two views TECHNIQUE: Digital Frontal and Lateral radiographic views of the chest acquired. RADIATION DOSE: NA LIMITATIONS: Monitoring wires are overlying the patient's chest. FINDINGS: LUNGS AND PLEURA: No opacities, masses or pneumothorax. No pleural effusion. MEDIASTINUM AND HILAR STRUCTURES: No masses or contour abnormalities. HEART AND VASCULAR STRUCTURES: Heart normal size. No evidence for failure. BONES: No acute findings. HARDWARE: None in the chest. IMPRESSION: No acute radiographic finding in the chest. TECHNICAL DOCUMENTATION: JOB ID: [id number] [employer]- All Rights Reserved
[2017-01-12 02:08] VITALS: BP 117/83
== END 2017-01-12 02:10 | disposition home or self-care (01) ==
LOC: ER 21:48
DX: R07.89 Other chest pain (principal); F17.210 Nicotine dependence, cigarettes, uncomplicated; R11.0 Nausea; R19.7 Diarrhea, unspecified
CPT/HCPCS: 36415; 71020; 80053; 82553; 84484; 85025; 85652; 93005; 93010; 99285

== ENCOUNTER 2017-07-18 06:53 | Emergency (ER) | payer MEDICAID ==
[2017-07-18] MEDS ORDERED: ONDANSETRON 4 MG TAB.RAPDIS PO ONE (07:16)
[2017-07-18] MEDS ORDERED: NORMAL SALINE 1000 ML 1,000 ML IV ONE (07:16)
--- NOTE | 2017-07-18 07:16 | ER Document Report ---
ED GI/ - General Chief Complaint: Nausea/Vomiting Stated Complaint: VOMITING Time Seen by Provider: 07/18/17 07:15 Mode of Arrival: Ambulatory Information source: Patient Notes: 26-year-old male with nausea and vomiting for several days. Last vomit was at 30. Increased number of stools but no diarrhea. No fever or chills. No abdominal pain. Came this morning because he supposed to work at [employer] today. Other coworkers have similar illness. Drink alcohol the night this started but not to the point where he was vomiting due to alcohol. TRAVEL OUTSIDE OF THE [place] IN LAST 30 DAYS: No - Related Data Allergies/Adverse Reactions: strawberry Allergy (Verified 01/11/17 22:24) Past Medical History - General Information source: Patient - Social History Smoking Status: Current Every Day Smoker Smoking Education Provided: Yes - encouraged to quit smoking Frequency of alcohol use: Occasional Drug Abuse: None Occupation: [employer] Lives with: Family Family History: Reviewed & Not Pertinent - Past Medical History Cardiac Medical History: Reports: Hx Heart Murmur Renal/ Medical History: Denies: Hx Peritoneal Dialysis Skin Medical History: Reports Hx Psoriasis Psychiatric Medical History: Reports: Hx Depression Past Surgical History: Reports: Hx Myringotomy - Immunizations Immunizations up to date: Yes Hx Diphtheria, Pertussis, Tetanus Vaccination: Yes Review of Systems - Review of Systems Constitutional: No symptoms reported EENT: No symptoms reported Cardiovascular: No symptoms reported Respiratory: No symptoms reported Gastrointestinal: See HPI Genitourinary: No symptoms reported Male Genitourinary: No symptoms reported Musculoskeletal: No symptoms reported Skin: No symptoms reported Hematologic/Lymphatic: No symptoms reported Neurological/Psychological: No symptoms reported Physical Exam - Vital signs Vitals: Temp Pulse Resp BP Pulse Ox 98.5 F 82 18 115/68 96 07/18/17 07:10 07/18/17 07:10 07/18/17 07:10 07/18/17 07:10 07/18/17 07:10 Interpretation: Normal - General General appearance: Appears well, Alert In distress: None Notes: looks dry - HEENT Head: Normocephalic, Atraumatic Eyes: Normal Pupils: PERRL Mucous membranes: Dry Pharynx: Erythema Neck: Supple. No: Lymphadenopathy - Respiratory Respiratory status: No respiratory distress Chest status: Nontender Breath sounds: Normal Chest palpation: Normal - Cardiovascular Rhythm: Regular Heart sounds: Normal auscultation Murmur: No - Abdominal Inspection: Normal Distension: No distension Bowel sounds: Normal Tenderness: Nontender. No: Tender Organomegaly: No organomegaly - Back Back: Normal, Nontender. No: CVA tenderness - Extremities General upper extremity: Normal inspection, Nontender, Normal color, Normal ROM , Normal temperature General lower extremity: Normal inspection, Nontender, Normal color, Normal ROM , Normal temperature, Normal weight bearing. No: Rita's sign - Neurological Neuro grossly intact: Yes Cognition: Normal Orientation: AAOx4 Orla Coma Scale Eye Opening: Spontaneous Galindo Coma Scale Verbal: Oriented Orla Coma Scale Motor: Obeys Commands Orla Coma Scale Total: 15 Speech: Normal Motor strength normal: LUE, RUE, LLE, RLE Sensory: Normal - Psychological Associated symptoms: Normal affect, Normal mood - Skin Skin Temperature: Warm Skin Moisture: Dry Skin Color: Normal Skin irregularity: Rash - tinea versicolor abdomen Course - Re-evaluation Re-evalutation: 07/18/17 08:54 Patient has not vomited since 330 he does not want an IV so I will give him the Zofran ODT as prescribed and he can orally hydrate at home. - Vital Signs Vital signs: Temp Pulse Resp BP Pulse Ox 98.5 F 82 18 115/68 96 07/18/17 07:10 07/18/17 07:10 07/18/17 07:10 07/18/17 07:10 07/18/17 07:10 Discharge - Discharge Clinical Impression: Vomiting Condition: Good Disposition: HOME, SELF-CARE Instructions: Nausea or Vomiting, Nonspecific ([facility]), Antinausea Medication ([facility] ) Additional Instructions: Plenty of fluids today Return to the emergency room if you develop any fever abdominal pain or persistent vomiting or diarrhea Prescriptions: Ondansetron HCl [Zofran 4 mg Tablet] 1 - 2 tab PO Q4H PRN #20 tablet PRN Reason: Referrals: HERMILO VALENTE MD [ACTIVE STAFF] - Follow up as needed
[2017-07-18 09:01] LABS: APPEARANCE,URINE SLIGHTLY-CLOUDY; BILIRUBIN,URINE NEGATIVE (NEGATIVE); COLOR,URINE YELLOW; GLUCOSE, URINE NEGATIVE (NEGATIVE); KETONES,URINE NEGATIVE (NEGATIVE); LEUKOCYTE ESTERASE,URINE NEGATIVE (NEGATIVE); NITRITE,URINE NEGATIVE (NEGATIVE); PROTEIN,URINE NEGATIVE (NEGATIVE); URINE SPECIFIC GRAVITY 1.026
[2017-07-18 09:36] VITALS: BP 126/81
== END 2017-07-18 09:20 | disposition home or self-care (01) ==
LOC: ER 06:53
DX: R11.2 Nausea with vomiting, unspecified (principal); F17.200 Nicotine dependence, unspecified, uncomplicated
CPT/HCPCS: 99283; 81001; S0119

== ENCOUNTER 2017-08-06 22:35 | Emergency (ER) | payer MEDICAID ==
[2017-08-06 23:02] VITALS: BP 141/94
[2017-08-06] MEDS ORDERED: IBUPROFEN 800 MG TABLET PO ONE (23:50)
[2017-08-06] MEDS ORDERED: AMOXICILLIN TRIHYDRATE 500 MG CAPSULE PO ONE (23:50)
--- NOTE | 2017-08-06 23:53 | ER Document Report ---
HPI - HPI Patient complains to provider of: Right ear pain Onset: This evening Onset/Duration: Gradual Quality of pain: Achy Pain Level: 5 Context: Patient presents complaining of right ear pain that started this evening. Patient reports drainage with some blood from his right ear. Patient denies any trauma or fever. Associated Symptoms: Earache. denies: Fever Exacerbated by: Denies Relieved by: Denies Similar symptoms previously: Yes Recently seen / treated by doctor: No - ROS ROS below otherwise negative: Yes Systems Reviewed and Negative: Yes All other systems reviewed and negative - CONSTITUTIONAL Constitutional: DENIES: Fever - EENT EENT: REPORTS: Ear Pain - RESPIRATORY Respiratory: DENIES: Coughing - MUSCULOSKELETAL Musculoskeletal: DENIES: Neck Pain - DERM Skin Color: Normal Skin Problems: None Past Medical History - General Information source: Patient - Social History Smoking Status: Never Smoker Frequency of alcohol use: None Drug Abuse: Marijuana Occupation: none Family History: Reviewed & Not Pertinent - Past Medical History Cardiac Medical History: Reports: Hx Heart Murmur Renal/ Medical History: Denies: Hx Peritoneal Dialysis Skin Medical History: Reports Hx Psoriasis Psychiatric Medical History: Reports: Hx Depression Surgical Hx: Negative Past Surgical History: Reports: Hx Myringotomy - Immunizations Immunizations up to date: Yes Hx Diphtheria, Pertussis, Tetanus Vaccination: Yes Vertical Provider Document - CONSTITUTIONAL Agree With Documented VS: No - Patient not tachycardic, heart rate 98 Exam Limitations: No Limitations General Appearance: WD/WN, No Apparent Distress - INFECTION CONTROL TRAVEL OUTSIDE OF THE [place] IN LAST 30 DAYS: No - HEENT HEENT: Atraumatic, Normocephalic, Tympanic Membrane Red - Left Notes: Otorrhea to right external auditory canal, right TM unable to be visualized, no mastoid tenderness or swelling. No pain with movement of right helix - NECK Neck: Normal Inspection, Supple. negative: Lymphadenopathy-Left, Lymphadenopathy-Right - RESPIRATORY Respiratory: Breath Sounds Normal, No Respiratory Distress - CARDIOVASCULAR Cardiovascular: Regular Rate, Regular Rhythm, No Murmur. negative: Tachycardia - BACK Back: Normal Inspection - MUSCULOSKELETAL/EXTREMETIES Musculoskeletal/Extremeties: MAEW - NEURO Level of Consciousness: Awake, Alert, Appropriate Motor/Sensory: No Motor Deficit - DERM Integumentary: Warm, Dry, No Rash Course - Re-evaluation Re-evalutation: 08/06/17 23:51 With findings concerning for ruptured right TM due to acute otitis media. No concern for mastoiditis. Good return precautions given - Vital Signs Vital signs: Temp Pulse Resp BP Pulse Ox 98.9 F 120 H 18 141/94 H 97 08/06/17 23:01 08/06/17 23:01 08/06/17 23:01 08/06/17 23:01 08/06/17 23:01 Discharge - Discharge Clinical Impression: Otitis media Condition: Stable Disposition: HOME, SELF-CARE Instructions: Amoxicillin ([facility]), Otitis Media ([facility]), Perforated Eardrum ([facility]) Additional Instructions: Return immediately for any new or worsening symptoms Followup with your primary care provider, call tomorrow to make a followup appointment Do not allow any water into the right ear canal Prescriptions: Amoxicillin 500 mg PO TID #30 tablet Naproxen [Naprosyn 250 Nmg Tablet] 1 tab PO BID #14 tablet Referrals: [facility] [Provider Group] - Follow up as needed [facility] [Provider Group] - Follow up as needed [facility] [Provider Group] - Follow up as needed
== END 2017-08-07 00:14 | disposition home or self-care (01) ==
LOC: ER 22:35
DX: H66.91 Otitis media, unspecified, right ear (principal); H92.01 Otalgia, right ear
CPT/HCPCS: 99282; J3490